=== PATIENT | male | born 1965 | race Caucasian/White ===

== ENCOUNTER 2023-06-07 16:24 | Emergency (ER) | payer BC ==
[~2023-06-07] VITALS: Wt 97.5 kg
[~2023-06-07 16:24] MED LIST: LISINOPRIL20 MG PO; PRISTIQ50 MG PO
[2023-06-07] MEDS ORDERED: Tdap Vaccine 0.5 ML SYR (Adult Vaccine) IM ONE (16:45)
[2023-06-07] MEDS ORDERED: AMOX-CLAV 875-1 EACH PO (16:45)
[2023-06-07] MEDS ORDERED: Amoxicillin/Clavulanate Pota 875 MG TAB PO ONE (16:45)
[2023-06-07] MEDS ORDERED: Bacitracin Zinc 14 GM TUBE T ONE (17:05)
== END 2023-06-07 17:04 | disposition home or self-care (01) ==
LOC: ED 16:24
DX: S41.151A Open bite of right upper arm, initial encounter (principal); S81.851A Open bite, right lower leg, initial encounter; F32.A Depression, unspecified; I10 Essential (primary) hypertension; W54.0XXA Bitten by dog, initial encounter; Y93.89 Activity, other specified; Y92.89 Other specified places as the place of occurrence of the external cause; Y99.8 Other external cause status